=== PATIENT | female | born 1980 ===

== ENCOUNTER 2017-07-16 19:22 | Emergency (ER) | payer MEDICAID ==
[2017-07-16 19:54] VITALS: RESP 18
[2017-07-16 20:24] LABS: HCG,QUALITATIVE URINE NEGATIVE (NEGATIVE)
[2017-07-16 20:29] LABS: SQUAMOUS EPITHIAL 18 /hpf (0-5); URINE BACTERIA RARE (<OCC); URINE BILIRUBIN NEGATIVE (NEGATIVE); URINE BLOOD 2+ (NEGATIVE); URINE CLARITY Hazy (Clear); URINE COLOR Yellow (YELLOW); URINE GLUCOSE (UA) NORMAL (Normal); URINE LEUKOCYTE ESTERASE 3+ Leu/uL (Negative); URINE PROTEIN NEGATIVE (NEGATIVE); WBC CLUMPS MOD /hpf
[2017-07-16 20:39] LABS: BASO % 0.2 % (0.0-2.0); EOS % 0.2 % (0.0-4.0); HEMOGLOBIN 10.5 g/dL (11.0-16.0); LYMPH # 1.5 K/uL (1.0-4.3); LYMPH % 10.9 % (20.0-40.0); MEAN CELL VOLUME 83.8 fL (81.0-99.0); MEAN CORPUSCULAR HEMOGLOBIN 28.4 pg (27.0-31.0); MEAN CORPUSCULAR HGB CONC 33.9 g/dL (33.0-37.0); MEAN PLATELET VOLUME 7.6 fL (7.2-11.7); MONO # 1.1 K/uL (0.0-0.8); MONO % 7.6 % (0.0-10.0); NEUT # 11.2 K/uL (1.8-7.0); NEUT % 81.1 % (50.0-75.0); RBC 3.71 Mil/uL (3.80-5.20); RED CELL DISTRIBUTION WIDTH 13.1 % (11.5-14.5); WHITE BLOOD COUNT 13.8 K/uL (4.8-10.8)
[2017-07-16 20:50] LABS: ALB/GLOB RATIO 0.9 (1.0-2.1); ALBUMIN 3.6 g/dL (3.5-5.0); ALT/SGPT 20 U/L (9-52); AST/SGOT 14 U/L (14-36); BLOOD UREA NITROGEN 9 mg/dL (7-17); CALCIUM 8.3 mg/dl (8.6-10.4); GFR AFRICAN-AMERICAN > 60; GFR NON-AFRICAN AMERICAN > 60; LIPASE 167 U/L (23-300)
[2017-07-16] MEDS ORDERED: Ciprofloxacin 400mg/200ml D5W 400 MG/200 ML BAG IV STA (20:51)
[2017-07-16] MEDS ORDERED: Ciprofloxacin 400mg/200ml D5W 400 MG/200 ML BAG IVPB ONE (21:03)
[2017-07-16] MEDS ORDERED: Sodium Chloride 0.9% 1,000 ML IV ONE (21:08)
[2017-07-16] MEDS ORDERED: Sodium Chloride 0.9% 1,000 ML ONE (21:12)
--- NOTE | 2017-07-16 21:16 | C.PDOC ---
History Of Present Illness 37 y/o female, [id number], presents to the ED complaining of vomiting for 3 weeks, associated with left lower quadrant pain radiating to left flank pain. (+) nausea and intermittent fever. Denies . Patient was evaluated for the same at [facility] 3 weeks ago without significant findings. Now states she wants a second opinion. Of note, patients PMHx is significant only for bipolar disorder. Time Seen by Provider: 07/16/17 20:08 Chief Complaint (Nursing): GI Problem History Per: Patient History/Exam Limitations: no limitations Onset/Duration Of Symptoms: Days (x 3 weeks) Current Symptoms Are (Timing): Still Present Past Medical History Reviewed: Historical Data, Nursing Documentation, Vital Signs Vital Signs: Last Vital Signs Temp 99.5 F 07/16/17 19:50 Pulse 118 H 07/16/17 19:50 Resp 18 07/16/17 19:50 BP 113/76 07/16/17 19:50 Pulse Ox 99 07/16/17 21:23 - Medical History PMH: Bipolar Disorder Denies: Chronic Kidney Disease Surgical History: No Surg Hx Family History: States: No Known Family Hx - Social History Hx Tobacco Use: No Hx Alcohol Use: Yes Hx Substance Use: No - Immunization History Hx Tetanus Toxoid Vaccination: No Hx Influenza Vaccination: No Review Of Systems Except As Marked, All Systems Reviewed And Found Negative. Constitutional: Negative for: Fever, Chills Gastrointestinal: Positive for: Vomiting, Abdominal Pain. Negative for: Nausea , Diarrhea, Constipation Genitourinary: Negative for: Dysuria, Frequency Physical Exam - Physical Exam Appears: Non-toxic, No Acute Distress, Other (Blue-tinted hair) Skin: Normal Color, Warm, Dry Head: Atraumatic, Normacephalic Eye(s): bilateral: Normal Inspection, PERRL, EOMI Nose: Normal Oral Mucosa: Moist Neck: Normal ROM Chest: Symmetrical Cardiovascular: Rhythm Regular, No Murmur Respiratory: Normal Breath Sounds, No Accessory Muscle Use Gastrointestinal/Abdominal: Bowel Sounds (active), Soft, No Tenderness, No Guarding, No Rebound Extremity: Bilateral: Atraumatic, Normal Color And Temperature, Normal ROM Neurological/Psych: Oriented x3, Normal Speech Gait: Steady Additional Physical Exam Comments: ROSANNA Lowe chaperoned exam ED Course And Treatment - Laboratory Results Result Diagrams: 07/16/17 20:34 07/16/17 20:34 Lab Interpretation: Abnormal (UA 387 WBC's) Urine POC: Negative O2 Sat by Pulse Oximetry: 99 (RA) Pulse Ox Interpretation: Normal - Radiology CXR: Interpreted by Me CXR Interpretation: Yes: No Acute Disease - Other Rad abd x 2 X-Ray: Interpreted by Me (+ increased stool/gas) Progress Note: toradol, IVF, Cipro IV Reevaluation Time: 21:22 Reassessment Condition: Improved Medical Decision Making Medical Decision Making: Time: 20:11 Initial Plan: * Labs * Pepcid 20 mg IV * Zofran 4 mg IV * IV fluids * X-ray obstructive series X-ray and lab results reviewed. Urine is indicative of UTI. 20:51 Pt given IV Cipro in the ED 2114: prob L pyelonephritis cipro empirically x 10 days. Disposition Doctor Will See Patient In The: Office Counseled Patient/Family Regarding: Studies Performed, Diagnosis - Disposition Disposition: HOME/ ROUTINE Disposition Time: 21:23 Condition: GOOD Prescriptions: Ciprofloxacin [Cipro] 1 tab PO BID #19 tab Forms: [employer] (Greek) - Clinical Impression Clinical Impression: UTI (urinary tract infection), Fever - Scribe Statement The provider has reviewed the documentation as recorded by the Scribe (Fifi Yi) Provider Attestation: All medical record entries made by the Scribe were at my direction and personally dictated by me. I have reviewed the chart and agree that the record accurately reflects my personal performance of the history, physical exam, medical decision making, and the department course for this patient. I have also personally directed, reviewed, and agree with the discharge instructions and disposition.
[2017-07-16 22:45] VITALS: BP 114/74; PULSE 86; TEMP 98.6; O2SAT 100
--- NOTE | 2017-07-17 08:23 | RAD ---
PROCEDURE: Radiographs of the chest and abdomen (obstructive series) HISTORY: abd pain COMPARISON: No prior. TECHNIQUE: AP radiograph of the chest, with upright and supine radiographs of the abdomen. FINDINGS: CHEST: Lungs: Clear. Cardiovascular: Normal size heart. No pulmonary vascular congestion. Pleura: No pleural fluid. No pneumothorax. Other findings: None. ABDOMEN AND PELVIS: Bowel: Unremarkable bowel gas pattern. No evidence of mechanical obstruction. Free air: None. Bones: Unremarkable. Other findings: 1.6 x 2.0 cm left staghorn calculus. IMPRESSION: No focal consolidation or pleural effusion. 1.6 x 2.0 cm left staghorn calculus. Unremarkable bowel gas pattern.
== END 2017-07-16 22:36 | disposition home or self-care (01) ==
LOC: C.ER 19:22
DX: N39.0 Urinary tract infection, site not specified (principal); R50.9 Fever, unspecified
CPT/HCPCS: 74022; 80053; 81001; 83690; 84703; 85025; 96365; 96375; 99285; J0744; J2405; J7040

== ENCOUNTER 2017-12-06 17:15 | Emergency (ER) | payer MEDICAID ==
[2017-12-06 17:28] VITALS: BP 150/86; PULSE 82; TEMP 98; O2SAT 100
--- NOTE | 2017-12-06 19:22 | C.PDOC ---
History Of Present Illness 37-year-old female presents to the ED for evaluation after she sustained an injury to her right foot earlier today. Patient states she was in the store when a prize wheel fell onto her right foot. Patient also reports a rash to her breast region; Patient states she recently underwent a mammomgram and breast sonogram. Patient denies any other injuries or extremity numbness/weakness. Time Seen by Provider: 12/06/17 17:37 Chief Complaint (Nursing): Abnormal Skin Integrity History Per: Patient History/Exam Limitations: no limitations Onset/Duration Of Symptoms: Hrs Current Symptoms Are (Timing): Still Present Additional History Per: Patient Past Medical History Reviewed: Historical Data, Nursing Documentation, Vital Signs Vital Signs: Last Vital Signs Temp 98.0 F 12/06/17 17:23 Pulse 82 12/06/17 17:23 Resp 20 12/06/17 19:31 BP 150/86 12/06/17 17:23 Pulse Ox 100 12/07/17 00:05 - Medical History PMH: Bipolar Disorder Denies: Chronic Kidney Disease Surgical History: No Surg Hx Family History: States: Unknown Family Hx - Social History Hx Tobacco Use: No Hx Alcohol Use: Yes Hx Substance Use: No - Immunization History Hx Tetanus Toxoid Vaccination: No Hx Influenza Vaccination: No Hx Pneumococcal Vaccination: No Review Of Systems Musculoskeletal: Positive for: Foot Pain (right ) Skin: Positive for: Rash (breasts) Neurological: Negative for: Weakness, Numbness Physical Exam - Physical Exam Appears: Non-toxic, No Acute Distress Skin: Normal Color, Warm, Dry, Other ( petechiae and contusion to breasts) Head: Atraumatic, Normacephalic Eye(s): bilateral: Normal Inspection Oral Mucosa: Moist Neck: Supple Chest: Symmetrical, No Deformity, No Tenderness Cardiovascular: Rhythm Regular, No Murmur Respiratory: Normal Breath Sounds, No Rales, No Rhonchi, No Wheezing Extremity: Normal ROM, Capillary Refill (less than 2 seconds ), Other (slight swelling, erythema and tenderness to base of all toes of right foot ) Pulses: Left Dorsalis Pedis: Normal, Right Dorsalis Pedis: Normal Neurological/Psych: Oriented x3, Normal Speech, Normal Cognition ED Course And Treatment O2 Sat by Pulse Oximetry: 100 (on RA) Pulse Ox Interpretation: Normal - Other Rad FOOT XRAY X-Ray: Viewed By Me, Read By Radiologist Interpretation: Accession No. : [id number]. Patient Name / ID : HERMES WILSON / [id number]. Exam Date : 12/06/2017 18:16:59 ( Approved ). Study Comment : Sex / Age : F / [id number]. Creator : Naheed Vickers. Dictator : Jaden Rodriguez MD. Dinker : Customer Sales Advisor : Jaden Rodriguez MD. Approver2 : Report Date : 12/06/2017 18:30:36. My Comment : . Right foot three views. History: Injury. Comparison: None available. Findings: Dense sclerosis noted within the medullary cavity of the 5th metatarsal bone, nonspecific. Clinical correlation. Mild hallux valgus deformity. No evidence for acute displaced fracture or dislocation. Impression: Dense sclerosis noted within the medullary cavity of the 5th metatarsal bone, nonspecific. Clinical correlation. Negative acute. If pain persists, consider MRI. Progress Note: Right foot XR ordered and reviewed. Results are unremarkable. On re-exam, patient is resting comfortably, showing no signs of distress and is stablel for discharge. Patient provided with orthopedic shoe and crutches. Patient is advised to follow up with orthopedic care within 1-2 days for further evaluation. Disposition - Disposition Referrals: Edmar Bonilla DPM [Medical Doctor] - Elias Edge DPM [Staff Provider] - Disposition: HOME/ ROUTINE Disposition Time: 19:19 Condition: STABLE Additional Instructions: Follow up with remote broadcast engineer within1-2 days. Return to ED if feel worse. Prescriptions: Ibuprofen [Motrin Tab] 600 mg PO Q8 #30 tab Instructions: Contusion (DC) Forms: [employer] (Malian), Work Excuse - Clinical Impression Clinical Impression: Foot contusion, Traumatic petechiae - PA / RESIDENTIAL TREATMENT STAFF / Resident Statement MD/DO has reviewed & agrees with the documentation as recorded. - Scribe Statement The provider has reviewed the documentation as recorded by the Scribe (Emili Engel) All medical record entries made by the Scribe were at my direction and personally dictated by me. I have reviewed the chart and agree that the record accurately reflects my personal performance of the history, physical exam, medical decision making, and the department course for this patient. I have also personally directed, reviewed, and agree with the discharge instructions and disposition.
[2017-12-06 19:32] VITALS: RESP 20
--- NOTE | 2017-12-07 09:58 | RAD ---
Right foot three views History: Injury. Comparison: None available. Findings: Dense sclerosis noted within the medullary cavity of the 5th metatarsal bone, nonspecific. Clinical correlation. Mild hallux valgus deformity. No evidence for acute displaced fracture or dislocation. Impression: Dense sclerosis noted within the medullary cavity of the 5th metatarsal bone, nonspecific. Clinical correlation. Negative acute. If pain persists, consider MRI.
== END 2017-12-06 19:31 | disposition home or self-care (01) ==
LOC: C.ER 17:15
DX: S90.31XA Contusion of right foot, initial encounter (principal); W20.8XXA Other cause of strike by thrown, projected or falling object, initial encounter; Y92.512 Supermarket, store or market as the place of occurrence of the external cause; R23.3 Spontaneous ecchymoses

== ENCOUNTER 2017-12-25 16:47 | Emergency (ER) | payer MEDICAID ==
[2017-12-25 17:01] VITALS: BMI 25.5
[2017-12-25 17:14] VITALS: BP 133/89; PULSE 104; RESP 18; TEMP 98.6; O2SAT 96
[2017-12-25] MEDS ORDERED: Tmp-Smz 800 mg-160 mg DS Tab PO STA (17:21)
--- NOTE | 2017-12-25 17:23 | C.PDOC ---
History Of Present Illness 37 y/o female presents to the ER complaining of pimple in left buttock which has been present for the past 3 weeks. Patient states that she has pain. Denies having discharge, fever, and chills. Time Seen by Provider: 12/25/17 17:09 Chief Complaint (Nursing): Abnormal Skin Integrity History Per: Patient History/Exam Limitations: no limitations Onset/Duration Of Symptoms: Days Current Symptoms Are (Timing): Still Present Severity: Moderate Past Medical History Reviewed: Historical Data, Nursing Documentation, Vital Signs Vital Signs: Last Vital Signs Temp 98.6 F 12/25/17 17:01 Pulse 104 H 12/25/17 17:01 Resp 18 12/25/17 17:01 BP 133/89 12/25/17 17:01 Pulse Ox 96 12/25/17 17:01 - Medical History PMH: Bipolar Disorder, Kidney Stones (CURRENTLY PER PATIENT), Chronic Kidney Disease Surgical History: No Surg Hx Family History: States: No Known Family Hx - Social History Hx Tobacco Use: No Hx Alcohol Use: Yes Hx Substance Use: No - Immunization History Hx Tetanus Toxoid Vaccination: No Hx Influenza Vaccination: No Hx Pneumococcal Vaccination: No Review Of Systems Except As Marked, All Systems Reviewed And Found Negative. Constitutional: Negative for: Fever, Chills Skin: Positive for: Other (pimple to left buttock) Physical Exam - Physical Exam Appears: Non-toxic, No Acute Distress Skin: Normal Color, Warm, Dry, Other (8x8 cm round area of erythema, induration, no fluctuance, consistent with cellulitis) Head: Atraumatic, Normacephalic Eye(s): bilateral: Normal Inspection Nose: Normal Oral Mucosa: Moist Neck: Supple Chest: Symmetrical Extremity: Normal ROM, Tenderness (left buttock), Swelling (left buttock), Other (chaperoned by nurse) Neurological/Psych: Oriented x3, Normal Speech ED Course And Treatment O2 Sat by Pulse Oximetry: 96 (RA) Pulse Ox Interpretation: Normal Medical Decision Making Medical Decision Making: skin infection L buttock cellulitis no fluctuance to drain Disposition Doctor Will See Patient In The: Office Counseled Patient/Family Regarding: Studies Performed, Diagnosis - Disposition [facility]errals[facility] [Outside] [facility] [Outside] [email or web address] [Outside] Disposition: HOME/ ROUTINE Disposition Time: 17:22 Condition: GOOD Additional Instructions: Bactrim DS (antibiotic) twice daily for 5 days Motrin 400-600 mg every 6 hours as needed for pain. Warm compresses to the lesion DO NOT SQUEEZE- MAKES THE INFECTION DEEPER Follow-up in our outpatient [facility] as needed. Prescriptions: Sulfamethoxazole/Trimethoprim [Bactrim DS 800 mg-160 mg] 1 tab PO BID #9 tab Instructions: Cellulitis (Skin Infection), Adult (DC) Forms: [employer] (Serbian) - Clinical Impression Clinical Impression: Skin lesion - Scribe Statement The provider has reviewed the documentation as recorded by the Tejalibe Jaime Agrawal Provider Attestation: All medical record entries made by the Scribe were at my direction and personally dictated by me. I have reviewed the chart and agree that the record accurately reflects my personal performance of the history, physical exam, medical decision making, and the department course for this patient. I have also personally directed, reviewed, and agree with the discharge instructions and disposition.
[2017-12-25] MEDS ORDERED: Tmp-Smz 800 mg-160 mg DS Tab ONE (17:35)
== END 2017-12-25 17:37 | disposition home or self-care (01) ==
LOC: C.ER 16:47
DX: L98.9 Disorder of the skin and subcutaneous tissue, unspecified (principal)

== ENCOUNTER 2018-02-26 11:57 | Inpatient (IN) | payer MEDICAID ==
[2018-02-26 11:58] VITALS: BMI 25.5
[2018-02-26] MEDS ORDERED: Sodium Chloride 0.9% 1,000 ML IV ONE (13:30)
[2018-02-26 13:35] LABS: SQUAMOUS EPITHIAL 21 /hpf (0-5); URINE BILIRUBIN NEGATIVE (NEGATIVE); URINE BLOOD 3+ (NEGATIVE); URINE CLARITY Hazy (Clear); URINE COLOR Amber (YELLOW); URINE GLUCOSE (UA) NORMAL (Normal); URINE LEUKOCYTE ESTERASE NEG Leu/uL (Negative); URINE PROTEIN 2+ mg/dL (NEGATIVE); URINE UROBILINOGEN NORMAL mg/dL (0.2-1.0)
[2018-02-26] MEDS ORDERED: Sodium Chloride 0.9% 1,000 ML ONE (13:41)
[2018-02-26 13:56] LABS: BASO # 0.1 K/uL (0.0-0.2); BASO % 0.9 % (0.0-2.0); EOS # 0.1 K/uL (0.0-0.7); EOS % 0.6 % (0.0-4.0); HEMOGLOBIN 12.3 g/dL (11.0-16.0); LYMPH # 2.5 K/uL (1.0-4.3); LYMPH % 29.2 % (20.0-40.0); MEAN CELL VOLUME 85.3 fL (81.0-99.0); MEAN CORPUSCULAR HEMOGLOBIN 29.3 pg (27.0-31.0); MEAN CORPUSCULAR HGB CONC 34.4 g/dL (33.0-37.0); MEAN PLATELET VOLUME 8.4 fL (7.2-11.7); MONO # 0.5 K/uL (0.0-0.8); MONO % 5.4 % (0.0-10.0); NEUT # 5.6 K/uL (1.8-7.0); NEUT % 63.9 % (50.0-75.0); RBC 4.2 Mil/uL (3.80-5.20); RED CELL DISTRIBUTION WIDTH 13.1 % (11.5-14.5); WHITE BLOOD COUNT 8.7 K/uL (4.8-10.8)
--- NOTE | 2018-02-26 14:02 | C.PDOC ---
History Of Present Illness 37 year old female with history of kidney stones presents to the ED complaining of left sided back pain associated with vomiting and hematuria that started today. Reports she was sent by Dr. Vivek Rivera because she has a 2.5cm kidney stone. LNMP last week. Denies any fever, chills, diarrhea, abdominal pain, chest pain, shortness of breath, weakness, numbness, or any other symptoms. Chief Complaint (Nursing): Back Pain History Per: Patient History/Exam Limitations: no limitations Onset/Duration Of Symptoms: Hrs Current Symptoms Are (Timing): Still Present Associated Symptoms: None Past Medical History Reviewed: Historical Data, Nursing Documentation, Vital Signs Vital Signs: Last Vital Signs Temp 98.2 F 02/26/18 12:24 Pulse 72 02/26/18 12:24 Resp 20 02/26/18 12:24 BP 126/81 02/26/18 12:24 Pulse Ox 99 02/26/18 12:24 - Medical History PMH: Bipolar Disorder, Kidney Stones (CURRENTLY PER PATIENT) Denies: Chronic Kidney Disease Other Surgeries: Hx of surgeries Family History: States: No Known Family Hx - Social History Hx Tobacco Use: No Hx Alcohol Use: Yes Hx Substance Use: No - Immunization History Hx Tetanus Toxoid Vaccination: No Hx Influenza Vaccination: No Hx Pneumococcal Vaccination: No Review Of Systems Constitutional: Negative for: Fever, Chills Cardiovascular: Negative for: Chest Pain Respiratory: Negative for: Shortness of Breath Gastrointestinal: Positive for: Vomiting. Negative for: Abdominal Pain, Diarrhea, Constipation Genitourinary: Positive for: Hematuria. Negative for: Dysuria Musculoskeletal: Positive for: Back Pain Physical Exam - Physical Exam Appears: Non-toxic, No Acute Distress, Other (comfortable, using her phone ) Skin: Warm, Dry Head: Normacephalic Eye(s): bilateral: Normal Inspection Nose: Normal Oral Mucosa: Moist Neck: Supple Chest: Symmetrical Cardiovascular: Rhythm Regular Respiratory: Normal Breath Sounds, No Rales, No Rhonchi, No Wheezing Gastrointestinal/Abdominal: Soft, No Tenderness, No Distention, No Guarding, No Rebound Back: CVA Tenderness (left) Extremity: Bilateral: Atraumatic, Normal Color And Temperature, Normal ROM Neurological/Psych: Oriented x3, Normal Speech Gait: Steady ED Course And Treatment - Laboratory Results Result Diagrams: 02/27/18 07:06 02/27/18 07:06 ECG: Interpreted By Me, Viewed By Me ECG Rhythm: Sinus Rhythm ECG Interpretation: No Acute Changes Interpretation Of ECG: Normal axis, normal intervals. No ST elevations. Rate From EC O2 Sat by Pulse Oximetry: 99 (RA) Pulse Ox Interpretation: Normal Medical Decision Making Medical Decision Making: Plan - CT abd/pel - Bloodwork - Toradol 15mg IVP - IV fluids Updates: 15:35 Patient ate a sandwich. Case discussed with . adv ised for patient to be admitted under the service of the hospitalist. Dr. Rivera will perform surgery tomorrow. 16:18 Case discussed with , hospitalist. Patient will be admitted under his service. Dr. Terry wants Dr. Angel for ID consult. Patient has been instructed about NPO after midnight mariya Rivera will take her for surgery in the morning. Disposition Counseled Patient/Family Regarding: Studies Performed, Diagnosis - Disposition Disposition: HOSPITALIZED Disposition Time: 16:18 Condition: IMPROVED - Clinical Impression Clinical Impression: Kidney stone, Renal colic - Scribe Statement The provider has reviewed the documentation as recorded by the Scribe Stefanie Rodriguez All medical record entries made by the Tejalibvivek were at my direction and personally dictated by me. I have reviewed the chart and agree that the record accurately reflects my personal performance of the history, physical exam, medical decision making, and the department course for this patient. I have also personally directed, reviewed, and agree with the discharge instructions and disposition.
[2018-02-26 14:18] LABS: ALB/GLOB RATIO 1.3 (1.0-2.1); ALBUMIN 4.4 g/dL (3.5-5.0); ALT/SGPT 24 U/L (9-52); AST/SGOT 22 U/L (14-36); BLOOD UREA NITROGEN 18 mg/dL (7-17); CALCIUM 9.2 mg/dl (8.6-10.4); GFR NON-AFRICAN AMERICAN > 60; LIPASE 191 U/L (23-300)
--- NOTE | 2018-02-26 15:14 | CT ---
Date of service: 02/26/2018 PROCEDURE: CT Abdomen and Pelvis without intravenous contrast HISTORY: abd pain COMPARISON: Abdomen obstructive radiographs 07/16/2017. TECHNIQUE: Helical CT of the abdomen and pelvis was performed without oral or intravenous contrast as per referring physician request. Coronal and sagittal reformats were generated. Contrast dose: None Radiation dose: Total exam DLP = 421.25 mGy-cm. This CT exam was performed using one or more of the following dose reduction techniques: Automated exposure control, adjustment of the mA and/or kV according to patient size, and/or use of iterative reconstruction technique. FINDINGS: LOWER THORAX: Tiny hiatal hernia identified with lung bases otherwise unremarkable as imaged. LIVER: There are numerable small lucencies scattered throughout the liver poorly characterized in this unenhanced CT exam. The largest measures 2.1 x 1.4 cm and is suggestive of a cyst given 2.6 Hounsfield unit management. Contrast CT is recommended for more definitive evaluation of the liver less there is a contraindication. Gross intrahepatic biliary duct dilatation is not felt to be present but again, evaluation limited given lack of IV contrast. GALLBLADDER AND BILE DUCTS: Unremarkable. PANCREAS: Unremarkable. No gross lesion or ductal dilatation. SPLEEN: Unremarkable. ADRENALS: Unremarkable. No mass. KIDNEYS AND URETERS: Renal parenchyma is inhomogeneous diffusely but without definite perinephric reaction or fluid collection evident. No right hydronephrosis. Pattern may be reflection of polycystic kidney disease. Clinically correlate further. This may explain the heterogeneous density hepatic appearance described above. There is a 1.1 x 0.9 cm calculus at the left renal pelvis without additional radiodense urolithiasis identified in the left kidney. A punctate intrarenal calculus is questioned versus parenchymal calculi sub occasion punctate in size at the lower pole right kidney. No right-sided obstructive uropathy. VASCULATURE: Unremarkable. No aortic aneurysm. No aortic atherosclerotic calcification or mural plaque present. BOWEL: Borderline sigmoid diverticular changes without acute inflammation associated. No bowel obstruction. No local pericolic or perienteric reactive changes. APPENDIX: Unremarkable. Normal appendix. PERITONEUM: Unremarkable. No free fluid. No free air. LYMPH NODES: Unremarkable. No enlarged lymph nodes. BLADDER: Unremarkable. REPRODUCTIVE: Somewhat lobular contour the uterus may indicate underlying fibroids. BONES: No acute fracture. OTHER FINDINGS: None. IMPRESSION: 1. Inhomogeneous density seen throughout the bilateral kidneys which are normal in overall size and may reflect limited adult polycystic kidney disease. Follow up ultrasonography or contrast core sectional imaging can be utilized for added renal characterization. No obstructive uropathy. A nonobstructing 1.1 cm calculus is identified at the left renal pelvis with a punctate calculus questioned at a lower pole right renal calyx. No perinephric reaction bilaterally. 2. Heterogeneous density throughout the liver is due at least in part to low multiple likely small hepatic cysts with a dominant cyst measuring 2.1 x 1.4 cm at the right lobe liver superiorly. Contrast CT can better evaluate hepatic parenchyma or MRI. 3. Likely fibroid uterus.
[2018-02-26] MEDS ORDERED: Sodium Chloride 0.9% 1,000 ML IV SCH ×2 (16:45→16:51)
--- NOTE | 2018-02-26 16:51 | CP.PCM.HP ---
<Adriano Kincaid - Last Filed: 02/26/18 16:42> History of Present Illness - History of Present Illness History of Present Illness: PGY-1 History and Physical for Dr[address] Terry's service CC: left back pain Ms. Huitron is 37 year old female with PMH of kidney stones who presents with sharp, stabbing left flank pain that radiates to her left shoulder. She had this pain for 3 months before but the pain got worse today while cleaning her house with multiple episodes of vomiting and hematuria. Patient has history of multiple kidney stones in both kidneys in past. She was sent to the hospital by Dr. Rivera for operation on 02/27/18 for kidney stone removal. Patient's pain is controlled with IV toradol. Patient denies any fever, headache, chest pain, shortness of breath, nausea, abdominal pain or dysuria. Patient admits to left flank pain, hematuria, and one episode of vomiting. PMH: kidney stones PSH: ureteroscopy Meds: none ALL: Morphine - rash Social hx: 2 cigarettes per day for past 3 years, drinks alcohol twice a week for 2 weeks, no illicit drugs Family hx: non-contributory PMD: unknown Code: Full Code Present on Admission - Present on Admission Any Indicators Present on Admission: No Review of Systems - Review of Systems Review of Systems: 12 point ROS obtained and noted as in HPI Past Patient History - Infectious Disease Hx of Infectious Diseases: None - Past Social History Smoking Status: Light Smoker < 10 Cigarettes Daily - CARDIAC Hx Heart Murmur: Yes - PULMONARY Hx Respiratory Disorders: No - NEUROLOGICAL Hx Neurological Disorder: No - HEENT Hx HEENT Problems: No - RENAL Hx Chronic Kidney Disease: No Hx Kidney Stones: Yes (CURRENTLY PER PATIENT) - ENDOCRINE/METABOLIC Hx Endocrine Disorders: No - HEMATOLOGICAL/ONCOLOGICAL Hx Blood Disorders: No - INTEGUMENTARY Hx Dermatological Problems: No - MUSCULOSKELETAL/RHEUMATOLOGICAL Hx Musculoskeletal Disorders: No - GASTROINTESTINAL Hx Gastrointestinal Disorders: No - GENITOURINARY/GYNECOLOGICAL Hx Genitourinary Disorders: No Other/Comment: Kidney stones - PSYCHIATRIC Hx Bipolar Disorder: Yes Hx Substance Use: No - SURGICAL HISTORY Hx Surgeries: Yes Other/Comment: Lithotrypsy - ANESTHESIA Hx Anesthesia: Yes Hx Anesthesia Reactions: No Meds Allergies/Adverse Reactions: Allergies Allergy/AdvReac Type Severity Reaction Status Date / Time morphine Allergy RASH Verified 02/26/18 12:27 Physical Exam - Constitutional Appears: Non-toxic, No Acute Distress - Head Exam Head Exam: NORMAL INSPECTION, NORMOCEPHALIC - Eye Exam Eye Exam: EOMI, Normal appearance. absent: Nystagmus, Scleral icterus - ENT Exam ENT Exam: Mucous Membranes Moist - Respiratory Exam Respiratory Exam: Clear to Auscultation Bilateral, NORMAL BREATHING PATTERN. absent: Rales, Rhonchi, Wheezes - Cardiovascular Exam Cardiovascular Exam: REGULAR RHYTHM, +S1, +S2. absent: Tachycardia - GI/Abdominal Exam GI & Abdominal Exam: Normal Bowel Sounds, Soft. absent: Diminished Bowel Sounds, Distended, Firm, Guarding, Tenderness - Extremities Exam Extremities exam: Positive for: normal inspection. Negative for: calf tenderness, pedal edema - Back Exam Back exam: CVA tenderness (L), NORMAL INSPECTION. absent: CVA tenderness (R) - Neurological Exam Neurological exam: Alert, CN II-XII Intact, Oriented x3 - Psychiatric Exam Psychiatric exam: Normal Affect, Normal Mood - Skin Skin Exam: Intact, Normal Color Results - Vital Signs Recent Vital Signs: Last Vital Signs Temp 98.2 F 02/26/18 12:24 Pulse 72 02/26/18 12:24 Resp 20 02/26/18 12:24 BP 126/81 02/26/18 12:24 Pulse Ox 99 02/26/18 16:25 - Labs Result Diagrams: 02/26/18 13:49 02/26/18 13:49 Labs: Laboratory Results - last 24 hr 02/26/18 02/26/18 02/26/18 13:24 13:49 13:49 WBC 8.7 RBC 4.20 Hgb 12.3 Hct 35.8 MCV 85.3 MCH 29.3 MCHC 34.4 RDW 13.1 Plt Count 337 D MPV 8.4 Neut % (Auto) 63.9 Lymph % (Auto) 29.2 [place] % (Auto) 5.4 Eos % (Auto) 0.6 Baso % (Auto) 0.9 Neut # (Auto) 5.6 Lymph # (Auto) 2.5 [place] # (Auto) 0.5 Eos # (Auto) 0.1 Baso # (Auto) 0.1 Sodium 139 Potassium 4.1 Chloride 103 Carbon Dioxide 26 Anion Gap 14 BUN 18 H Creatinine 0.6 L Est GFR ( Amer) > 60 Est GFR (Non-Af Amer) > 60 Random Glucose 92 Calcium 9.2 Total Bilirubin 0.6 AST 22 ALT 24 Alkaline Phosphatase 79 Total Protein 7.7 Albumin 4.4 Globulin 3.3 Albumin/Globulin Ratio 1.3 Lipase 191 Urine Color Flower Urine Clarity Hazy Urine pH 6.0 Ur Specific [place] 1.020 Urine Protein 2+ H Urine Glucose (UA) Normal Urine Ketones Negative Urine Blood 3+ H Urine Nitrate Negative Urine Bilirubin Negative Urine Urobilinogen Normal Ur Leukocyte Esterase Neg Urine WBC (Auto) 2 Urine RBC (Auto) 523 H Ur Squamous Epith Cells 21 H Assessment & Plan - Assessment and Plan (Free Text) Assessment: Patient is a 37 yo female with past medical history of recurrent kidney stones presents to emergency department s/p office meeting with Dr. Rivera who recommended patient come to hospital for stent placement. Plan: Left Kidney Stone CT Abdomen/Pelvis 02/26/18: nonobstructing 1.1 cm calculus is identified at the left renal pelvis with a punctate calculus questioned at a lower pole right renal calyx. Likely fibroid uterus Urology Consulted: Dr. Rivera- recommends stent placement in AM U/A: 2+ blood; multiple RBCs NS @ 40mls/hr IV toradol 30 q6 prn EKG pending; Cxray pending for preop clearance NPO in AM PPx: DVT: no need as patient is ambulatory GI: no indication for ppx Adriano Kincaid PGY-1 Medical Management discussed with Dr. Terry <Ty Terry - Last Filed: 02/26/18 18:07> Results - Vital Signs Recent Vital Signs: Last Vital Signs Temp 98.6 F 02/26/18 16:56 Pulse 80 02/26/18 16:56 Resp 20 02/26/18 16:56 BP 125/76 02/26/18 16:56 Pulse Ox 100 02/26/18 16:56 - Labs Result Diagrams: 02/26/18 13:49 02/26/18 13:49 Labs: Laboratory Results - last 24 hr 02/26/18 02/26/18 02/26/18 13:24 13:49 13:49 WBC 8.7 RBC 4.20 Hgb 12.3 Hct 35.8 MCV 85.3 MCH 29.3 MCHC 34.4 RDW 13.1 Plt Count 337 D MPV 8.4 Neut % (Auto) 63.9 Lymph % (Auto) 29.2 [place] % (Auto) 5.4 Eos % (Auto) 0.6 Baso % (Auto) 0.9 Neut # (Auto) 5.6 Lymph # (Auto) 2.5 [place] # (Auto) 0.5 Eos # (Auto) 0.1 Baso # (Auto) 0.1 Sodium 139 Potassium 4.1 Chloride 103 Carbon Dioxide 26 Anion Gap 14 BUN 18 H Creatinine 0.6 L Est GFR ( Amer) > 60 Est GFR (Non-Af Amer) > 60 Random Glucose 92 Calcium 9.2 Total Bilirubin 0.6 AST 22 ALT 24 Alkaline Phosphatase 79 Total Protein 7.7 Albumin 4.4 Globulin 3.3 Albumin/Globulin Ratio 1.3 Lipase 191 Urine Color Flower Urine Clarity Hazy Urine pH 6.0 Ur Specific [place] 1.020 Urine Protein 2+ H Urine Glucose (UA) Normal Urine Ketones Negative Urine Blood 3+ H Urine Nitrate Negative Urine Bilirubin Negative Urine Urobilinogen Normal Ur Leukocyte Esterase Neg Urine WBC (Auto) 2 Urine RBC (Auto) 523 H Ur Squamous Epith Cells 21 H Attending/Attestation - Attestation I have personally seen and examined this patient.: Yes I have fully participated in the care of the patient.: Yes I have reviewed all pertinent clinical information: Yes Notes (Text): 02/26/18 18:03 Medical attending: Patient was seen and examined by me. Reviewed the above note by the resident and agree with the above The patient was not in any acute distress when I came and saw the patient in the ER. The patient explains she has a known history of kidney stones and on CT scan there is a large stone on the left side this time. Urology is already aware and there is plan for the patient to have stenting down tomorrow and then at some point lithotrypsy. Patient will need CXRAY and also EKG, PT, INR check. NPO after midnight Ty Terry
[2018-02-26 20:23] LABS: INR 1.1; PROTHROMBIN TIME 12.5 SECONDS (9.7-12.2)
--- NOTE | 2018-02-26 22:56 | PCM.URO ---
Urology Progress Note - Objective Lab Studies: Reviewed (cysto tomorrow) Lab Results Last 24 Hours: Laboratory Results - last 24 hr 02/26/18 02/26/18 02/26/18 13:24 13:49 13:49 WBC 8.7 RBC 4.20 Hgb 12.3 Hct 35.8 MCV 85.3 MCH 29.3 MCHC 34.4 RDW 13.1 Plt Count 337 D MPV 8.4 Neut % (Auto) 63.9 Lymph % (Auto) 29.2 [place] % (Auto) 5.4 Eos % (Auto) 0.6 Baso % (Auto) 0.9 Neut # (Auto) 5.6 Lymph # (Auto) 2.5 [place] # (Auto) 0.5 Eos # (Auto) 0.1 Baso # (Auto) 0.1 PT INR APTT Sodium 139 Potassium 4.1 Chloride 103 Carbon Dioxide 26 Anion Gap 14 BUN 18 H Creatinine 0.6 L Est GFR ( Amer) > 60 Est GFR (Non-Af Amer) > 60 Random Glucose 92 Calcium 9.2 Total Bilirubin 0.6 AST 22 ALT 24 Alkaline Phosphatase 79 Total Protein 7.7 Albumin 4.4 Globulin 3.3 Albumin/Globulin Ratio 1.3 Lipase 191 Urine Color Flower Urine Clarity Hazy Urine pH 6.0 Ur Specific [place] 1.020 Urine Protein 2+ H Urine Glucose (UA) Normal Urine Ketones Negative Urine Blood 3+ H Urine Nitrate Negative Urine Bilirubin Negative Urine Urobilinogen Normal Ur Leukocyte Esterase Neg Urine WBC (Auto) 2 Urine RBC (Auto) 523 H Ur Squamous Epith Cells 21 H 02/26/18 20:09 WBC RBC Hgb Hct MCV MCH MCHC RDW Plt Count MPV Neut % (Auto) Lymph % (Auto) [place] % (Auto) Eos % (Auto) Baso % (Auto) Neut # (Auto) Lymph # (Auto) [place] # (Auto) Eos # (Auto) Baso # (Auto) PT 12.5 H INR 1.1 APTT 35 H Sodium Potassium Chloride Carbon Dioxide Anion Gap BUN Creatinine Est GFR ( Amer) Est GFR (Non-Af Amer) Random Glucose Calcium Total Bilirubin AST ALT Alkaline Phosphatase Total Protein Albumin Globulin Albumin/Globulin Ratio Lipase Urine Color Urine Clarity Urine pH Ur Specific [place] Urine Protein Urine Glucose (UA) Urine Ketones Urine Blood Urine Nitrate Urine Bilirubin Urine Urobilinogen Ur Leukocyte Esterase Urine WBC (Auto) Urine RBC (Auto) Ur Squamous Epith Cells Intake & Output: Intake & Output 02/26/18 02/26/18 02/27/18 06:59 18:59 06:59 Weight 148 lb Vital Signs: Vital Signs - 24 hr 02/26/18 02/26/18 02/26/18 12:24 16:56 17:30 Temperature 98.2 F 98.6 F 98.0 F Pulse Rate 72 80 76 Respiratory 20 20 20 Rate Blood Pressure 126/81 125/76 114/70 O2 Sat by Pulse 99 100 98 Oximetry 02/26/18 18:47 Temperature Pulse Rate Respiratory Rate Blood Pressure O2 Sat by Pulse 99 Oximetry
[2018-02-27 07:15] LABS: BASO # 0.1 K/uL (0.0-0.2); BASO % 0.7 % (0.0-2.0); EOS # 0.1 K/uL (0.0-0.7); EOS % 1.3 % (0.0-4.0); HEMOGLOBIN 11.6 g/dL (11.0-16.0); LYMPH # 2.4 K/uL (1.0-4.3); MEAN CELL VOLUME 86.1 fL (81.0-99.0); MEAN CORPUSCULAR HEMOGLOBIN 29.4 pg (27.0-31.0); MEAN CORPUSCULAR HGB CONC 34.1 g/dL (33.0-37.0); MEAN PLATELET VOLUME 8.6 fL (7.2-11.7); MONO # 0.4 K/uL (0.0-0.8); MONO % 5.7 % (0.0-10.0); NEUT # 4.5 K/uL (1.8-7.0); NEUT % 60.3 % (50.0-75.0); RBC 3.95 Mil/uL (3.80-5.20); RED CELL DISTRIBUTION WIDTH 13.1 % (11.5-14.5); WHITE BLOOD COUNT 7.4 K/uL (4.8-10.8)
[2018-02-27 07:43] LABS: ALB/GLOB RATIO 1.3 (1.0-2.1); ALBUMIN 3.7 g/dL (3.5-5.0); ALT/SGPT 20 U/L (9-52); AST/SGOT 19 U/L (14-36); BLOOD UREA NITROGEN 17 mg/dL (7-17); CALCIUM 8.4 mg/dl (8.6-10.4); GFR NON-AFRICAN AMERICAN > 60
[2018-02-27] MEDS ORDERED: cefTRIAXone 1 gm 1 GM/100 ML BAG IVPB ONE (09:31)
[2018-02-27] MEDS ORDERED: Lidocaine 2% Jelly (Uro-Jet) ONE (09:32)
[2018-02-27] MEDS ORDERED: HYDROmorphone 0.5 mg/0.5 ml ISec IVP PRN (09:53)
[2018-02-27] MEDS ORDERED: Midazolam 2 MG/2 ML VIAL ONE ×2 (10:04)
[2018-02-27] MEDS ORDERED: Propofol 10 mg/ml Inj (20 ML) ONE ×2 (10:07→10:15)
[2018-02-27] MEDS ORDERED: Oxycodone/Acetaminophen 5/325 mg Tab PO PRN (10:10)
[2018-02-27] MEDS: Iohexol 240 (50 ml) ONE ×2 (10:15→10:22)
[2018-02-27] MEDS ORDERED: Gentamicin 80 mg in 0.9% NS 80 MG/100 ML BAG IVPB SCH (11:00)
[2018-02-27] MEDS ORDERED: DiphenhydrAMINE 50 mg/ml Inj IVP ONE (11:45)
--- NOTE | 2018-02-27 13:10 | RAD ---
Chest x-ray single frontal view HISTORY: Preop clearance. Comparison: 02/26/2018 FINDINGS: Mild venous congestion. Right hilar prominence. Heart size within normal limits. Degenerative changes in the spine. Bibasilar breast and nipple shadows. Impression: No focal infiltrate or effusion.
[2018-02-27 15:17] VITALS: RESP 20
--- NOTE | 2018-02-27 16:34 | RAD ---
Date of service: 02/27/2018 PROCEDURE: Intraoperative Fluoroscopy. HISTORY: LT. RENAL CALCULI FINDINGS: Fluoroscopic assistance was provided. Fluoroscopy time = 11.5 sec. Radiation dose = 1.02 mGy. Please refer to the operative report from DHRUV Hinson, , MD DE[facility].
--- NOTE | 2018-02-27 17:14 | CP.PCM.DIS ---
<Neli Spencer - Last Filed: 02/27/18 19:45> Provider - Provider Date of Admission: 02/26/18 16:22 Attending physician: Ty Terry DO Consults: 02/26/18 16:39 Physician Consult Stat Comment: Consulting Provider: Reese Rivera Consulting Physician: Reese Rivera Reason for Consult: 2.5cm kidney ston, Left flank pain and hematuria Time Spent in preparation of Discharge (in minutes): 45 Diagnosis - Discharge Diagnosis (1) Nephrolithiasis Status: Acute Priority: High Hospital Course - Lab Results Lab Results: Most Recent Lab Values WBC 7.4 K/uL (4.8-10.8) 02/27/18 07:06 RBC 3.95 Mil/uL (3.80-5.20) 02/27/18 07:06 Hgb 11.6 g/dL (11.0-16.0) 02/27/18 07:06 Hct 34.1 % (34.0-47.0) 02/27/18 07:06 MCV 86.1 fL (81.0-99.0) 02/27/18 07:06 MCH 29.4 pg (27.0-31.0) 02/27/18 07:06 MCHC 34.1 g/dL (33.0-37.0) 02/27/18 07:06 RDW 13.1 % (11.5-14.5) 02/27/18 07:06 Plt Count 288 K/uL (130-400) 02/27/18 07:06 MPV 8.6 fL (7.2-11.7) 02/27/18 07:06 Neut % (Auto) 60.3 % (50.0-75.0) 02/27/18 07:06 Lymph % (Auto) 32.0 % (20.0-40.0) 02/27/18 07:06 [place] % (Auto) 5.7 % (0.0-10.0) 02/27/18 07:06 Eos % (Auto) 1.3 % (0.0-4.0) 02/27/18 07:06 Baso % (Auto) 0.7 % (0.0-2.0) 02/27/18 07:06 Neut # (Auto) 4.5 K/uL (1.8-7.0) 02/27/18 07:06 Lymph # (Auto) 2.4 K/uL (1.0-4.3) 02/27/18 07:06 [place] # (Auto) 0.4 K/uL (0.0-0.8) 02/27/18 07:06 Eos # (Auto) 0.1 K/uL (0.0-0.7) 02/27/18 07:06 Baso # (Auto) 0.1 K/uL (0.0-0.2) 02/27/18 07:06 PT 12.5 SECONDS (9.7-12.2) H 02/26/18 20:09 INR 1.1 02/26/18 20:09 APTT 35 SECONDS (21-34) H 02/26/18 20:09 Sodium 137 mmol/L (132-148) 02/27/18 07:06 Potassium 4.0 mmol/L (3.6-5.2) 02/27/18 07:06 Chloride 105 mmol/L (98-107) 02/27/18 07:06 Carbon Dioxide 26 mmol/L (22-30) 02/27/18 07:06 Anion Gap 10 (10-20) 02/27/18 07:06 BUN 17 mg/dL (7-17) 02/27/18 07:06 Creatinine 0.6 mg/dL (0.7-1.2) L 02/27/18 07:06 Est GFR ( Amer) > 60 02/27/18 07:06 Est GFR (Non-Af Amer) > 60 02/27/18 07:06 Random Glucose 80 mg/dL (65-105) 02/27/18 07:06 Calcium 8.4 mg/dl (8.6-10.4) L 02/27/18 07:06 Phosphorus 3.4 mg/dL (2.5-4.5) 02/27/18 07:06 Magnesium 1.9 mg/dL (1.6-2.3) 02/27/18 07:06 Total Bilirubin 0.5 mg/dL (0.2-1.3) 02/27/18 07:06 AST 19 U/L (14-36) 02/27/18 07:06 ALT 20 U/L (9-52) 02/27/18 07:06 Alkaline Phosphatase 70 U/L (38-126) 02/27/18 07:06 Total Protein 6.5 g/dL (6.3-8.3) 02/27/18 07:06 Albumin 3.7 g/dL (3.5-5.0) 02/27/18 07:06 Globulin 2.8 gm/dL (2.2-3.9) 02/27/18 07:06 Albumin/Globulin Ratio 1.3 (1.0-2.1) 02/27/18 07:06 Lipase 191 U/L (23-300) 02/26/18 13:49 Urine Color Flower (YELLOW) 02/26/18 13:24 Urine Clarity Hazy (Clear) 02/26/18 13:24 Urine pH 6.0 (5.0-8.0) 02/26/18 13:24 Ur Specific [place] 1.020 (1.003-1.030) 02/26/18 13:24 Urine Protein 2+ mg/dL (NEGATIVE) H 02/26/18 13:24 Urine Glucose (UA) Normal mg/dL (Normal) 02/26/18 13:24 Urine Ketones Negative mg/dL (NEGATIVE) 02/26/18 13:24 Urine Blood 3+ (NEGATIVE) H 02/26/18 13:24 Urine Nitrate Negative (NEGATIVE) 02/26/18 13:24 Urine Bilirubin Negative (NEGATIVE) 02/26/18 13:24 Urine Urobilinogen Normal mg/dL (0.2-1.0) 02/26/18 13:24 Ur Leukocyte Esterase Neg Neri/uL (Negative) 02/26/18 13:24 Urine WBC (Auto) 2 /hpf (0-5) 02/26/18 13:24 Urine RBC (Auto) 523 /hpf (0-3) H 02/26/18 13:24 Ur Squamous Epith Cells 21 /hpf (0-5) H 02/26/18 13:24 Urine HCG, Qual Negative (NEGATIVE) 02/27/18 07:25 - Hospital Course Hospital Course: Ms. Huitron is 37 year old female with PMH of kidney stones who presents with sharp, stabbing left flank pain that radiates to her left shoulder. She had this pain for 3 months before but the pain got worse today while cleaning her house with multiple episodes of vomiting and hematuria. Patient has history of multiple kidney stones in both kidneys in past. She was sent to the hospital by Dr. Rivera for operation on 02/27/18 for kidney stone removal. Patient's pain is controlled with IV toradol. Patient denies any fever, headache, chest pain, shortness of breath, nausea, abdominal pain or dysuria. Patient admits to left flank pain, hematuria, and one episode of vomiting. CT showed 1.1 cm nonobstructing stone in L renal pelvis. Patietn started on IVF and pain meds. Patient had ureteral stent placed by Dr. Rivera on 02/27 without complications. Upon discharge, patient's pain was well controlled with Percocet. She denied dysuria, endorsed hematuria. Did not yet pass tone. Will follow-up with Dr. Rivera tomorrow. Discharge Exam - Head Exam Head Exam: NORMAL INSPECTION, NORMOCEPHALIC - Eye Exam Eye Exam: EOMI, Normal appearance, PERRL - ENT Exam ENT Exam: Mucous Membranes Moist - Neck Exam Neck exam: Normal Inspection - Respiratory Exam Respiratory Exam: Clear to PA & Lateral, NORMAL BREATHING PATTERN, UNREMARKABLE - Cardiovascular Exam Cardiovascular Exam: REGULAR RHYTHM, +S1, +S2 - GI/Abdominal Exam GI & Abdominal Exam: Normal Bowel Sounds, Unremarkable Additional comments: mild suprapubic tenderness - Rectal Exam Rectal Exam: Deferred - Extremities Exam Extremities exam: normal inspection - Neurological Exam Neurological exam: Alert, CN II-XII Intact, Normal Gait, Oriented x3 - Psychiatric Exam Psychiatric exam: Normal Affect, Normal Mood - Skin Skin Exam: Dry, Intact, Normal Color, Warm Discharge Plan - Discharge Medications Prescriptions: Ciprofloxacin [Cipro] 500 mg PO Q12 3 Days #6 tab oxyCODONE/Acetaminophen [Percocet 5/325 mg Tab] 1 ea PO Q6 PRN 3 Days #18 tab PRN Reason: Pain, Severe (8-10) Tamsulosin [Flomax] 0.4 mg PO DAILY #30 cap - Follow Up Plan Condition: IMPROVED Disposition: HOME/ ROUTINE Patient education suggested?: Yes Instructions: Urinary Tract Infections in Adults, Ciprofloxacin (Systemic), Kidney Stones (DC), Oxycodone and Acetaminophen, Tamsulosin Additional Instructions: Please follow-up with Dr. Rivera once discharge. Dr. Rivera would like you to call his office to set-up outpatient care. You will be given a prescription for cipro 500 mg. Please take twice daily for 3 days. You will also be given Percocet for pain if needed, and Flomax. You may also take Tylenol over the counter for pain. If symptoms recur, return to the nearest emergency room. Referrals: Reese Rivera MD [Staff Provider] - <Ty Terry - Last Filed: 02/28/18 09:11> Provider - Provider Date of Admission: 02/26/18 16:22 Attending physician: Ty Terry DO Consults: 02/26/18 16:39 Physician Consult Stat Comment: Consulting Provider: Reese Rivera Consulting Physician: Reese Rivera Reason for Consult: 2.5cm kidney ston, Left flank pain and hematuria Hospital Course - Lab Results Lab Results: Most Recent Lab Values WBC 7.4 K/uL (4.8-10.8) 02/27/18 07:06 RBC 3.95 Mil/uL (3.80-5.20) 02/27/18 07:06 Hgb 11.6 g/dL (11.0-16.0) 02/27/18 07:06 Hct 34.1 % (34.0-47.0) 02/27/18 07:06 MCV 86.1 fL (81.0-99.0) 02/27/18 07:06 MCH 29.4 pg (27.0-31.0) 02/27/18 07:06 MCHC 34.1 g/dL (33.0-37.0) 02/27/18 07:06 RDW 13.1 % (11.5-14.5) 02/27/18 07:06 Plt Count 288 K/uL (130-400) 02/27/18 07:06 MPV 8.6 fL (7.2-11.7) 02/27/18 07:06 Neut % (Auto) 60.3 % (50.0-75.0) 02/27/18 07:06 Lymph % (Auto) 32.0 % (20.0-40.0) 02/27/18 07:06 [place] % (Auto) 5.7 % (0.0-10.0) 02/27/18 07:06 Eos % (Auto) 1.3 % (0.0-4.0) 02/27/18 07:06 Baso % (Auto) 0.7 % (0.0-2.0) 02/27/18 07:06 Neut # (Auto) 4.5 K/uL (1.8-7.0) 02/27/18 07:06 Lymph # (Auto) 2.4 K/uL (1.0-4.3) 02/27/18 07:06 [place] # (Auto) 0.4 K/uL (0.0-0.8) 02/27/18 07:06 Eos # (Auto) 0.1 K/uL (0.0-0.7) 02/27/18 07:06 Baso # (Auto) 0.1 K/uL (0.0-0.2) 02/27/18 07:06 PT 12.5 SECONDS (9.7-12.2) H 02/26/18 20:09 INR 1.1 02/26/18 20:09 APTT 35 SECONDS (21-34) H 02/26/18 20:09 Sodium 137 mmol/L (132-148) 02/27/18 07:06 Potassium 4.0 mmol/L (3.6-5.2) 02/27/18 07:06 Chloride 105 mmol/L (98-107) 02/27/18 07:06 Carbon Dioxide 26 mmol/L (22-30) 02/27/18 07:06 Anion Gap 10 (10-20) 02/27/18 07:06 BUN 17 mg/dL (7-17) 02/27/18 07:06 Creatinine 0.6 mg/dL (0.7-1.2) L 02/27/18 07:06 Est GFR ( Amer) > 60 02/27/18 07:06 Est GFR (Non-Af Amer) > 60 02/27/18 07:06 Random Glucose 80 mg/dL (65-105) 02/27/18 07:06 Calcium 8.4 mg/dl (8.6-10.4) L 02/27/18 07:06 Phosphorus 3.4 mg/dL (2.5-4.5) 02/27/18 07:06 Magnesium 1.9 mg/dL (1.6-2.3) 02/27/18 07:06 Total Bilirubin 0.5 mg/dL (0.2-1.3) 02/27/18 07:06 AST 19 U/L (14-36) 02/27/18 07:06 ALT 20 U/L (9-52) 02/27/18 07:06 Alkaline Phosphatase 70 U/L (38-126) 02/27/18 07:06 Total Protein 6.5 g/dL (6.3-8.3) 02/27/18 07:06 Albumin 3.7 g/dL (3.5-5.0) 02/27/18 07:06 Globulin 2.8 gm/dL (2.2-3.9) 02/27/18 07:06 Albumin/Globulin Ratio 1.3 (1.0-2.1) 02/27/18 07:06 Lipase 191 U/L (23-300) 02/26/18 13:49 Urine Color Flower (YELLOW) 02/26/18 13:24 Urine Clarity Hazy (Clear) 02/26/18 13:24 Urine pH 6.0 (5.0-8.0) 02/26/18 13:24 Ur Specific [place] 1.020 (1.003-1.030) 02/26/18 13:24 Urine Protein 2+ mg/dL (NEGATIVE) H 02/26/18 13:24 Urine Glucose (UA) Normal mg/dL (Normal) 02/26/18 13:24 Urine Ketones Negative mg/dL (NEGATIVE) 02/26/18 13:24 Urine Blood 3+ (NEGATIVE) H 02/26/18 13:24 Urine Nitrate Negative (NEGATIVE) 02/26/18 13:24 Urine Bilirubin Negative (NEGATIVE) 02/26/18 13:24 Urine Urobilinogen Normal mg/dL (0.2-1.0) 02/26/18 13:24 Ur Leukocyte Esterase Neg Neri/uL (Negative) 02/26/18 13:24 Urine WBC (Auto) 2 /hpf (0-5) 02/26/18 13:24 Urine RBC (Auto) 523 /hpf (0-3) H 02/26/18 13:24 Ur Squamous Epith Cells 21 /hpf (0-5) H 02/26/18 13:24 Urine HCG, Qual Negative (NEGATIVE) 02/27/18 07:25 Attending/Attestation - Attestation I have personally seen and examined this patient.: Yes I have fully participated in the care of the patient.: Yes I have reviewed all pertinent clinical information, including history, physical exam and plan: Yes Notes (Text): 02/28/18 09:10 Medical attending: Patient was seen and examined by me. Reviewed the above note by the resident and agree with the above Ty Terry
[2018-02-27 17:30] VITALS: BP 115/80; PULSE 69; TEMP 97.6
--- NOTE | 2018-02-28 17:21 | CARD ---
APPROVED REPORT Date of service: 02/26/2018 EKG Measurement Heart [id number] <Conclusion> Normal sinus rhythm Normal ECG
[2018-03-01] MEDS ORDERED: Influenza Vaccine 60 MCG/0.5 ML SYR (3 yr & up) IM ONE (10:00)
[2018-03-04 12:19] VITALS: O2SAT 99
--- NOTE | 2018-03-10 07:49 | HP ---
UROLOGY EMERGENCY ADMISSION HISTORY OF PRESENT ILLNESS: This is a very pleasant lady who has a history of stone disease. We were discussing options for her including stone comes out. She presents now with severe acute pain. We will bring her as an emergency or urgent admission. We are going to bring her to the OR as quickly as possible for stone treatment. PAST MEDICAL HISTORY: No changes previously. SOCIAL HISTORY: She works in a cleaning service. Otherwise unremarkable. No history of alcohol abuse. REVIEW OF SYSTEMS: As above and is noncontributory. No weight loss, chest pain or shortness of breath. Just has only severe renal colic. MEDICATIONS: See chart. ALLERGIES: SEE CHART. PHYSICAL EXAMINATION: GENERAL: She is a well-nourished female, no apparent distress. VITAL SIGNS: Within normal limits including the chart. LUNGS: Clear. CARDIOVASCULAR: S1 and S2. ABDOMEN: Overall soft, . PELVIS: Deferred until the time of visit, but as I mentioned now, no pelvic or rectal masses are noted. Minimal cystocele. DIAGNOSES: Urolithiasis, hematuria, severe renal colic, gross hematuria. ASSESSMENT AND PLAN: In summary, a very pleasant lady. Actually with her stone burden, my real recommendation is for cystoscopy, stent insertion followed by an extracorporeal shock wave laser lithotripsy or even YAG laser lithotripsy. We will discuss that but continue to bring her as an emergency or urgent admission. We are going to plan for antibiotic prophylaxis going to the operating room immediately for cystoscopy and no further plan to follow. Andi Rivera MD
--- NOTE | 2018-03-10 08:14 | OP ---
PROCEDURE DATE: 02/27/2018 PREOPERATIVE DIAGNOSES: Hematuria, hydronephrosis, severe renal colic, urolithiasis. POSTOPERATIVE DIAGNOSES: Hematuria, hydronephrosis, severe renal colic, urolithiasis. PROCEDURE: Exam under anesthesia, cystoscopy, left retrograde pyelogram, insertion of left double J stent. COMPLICATIONS: There were no complications. INDICATIONS: See history and physical for further details. This is a very pleasant lady with a stone who presents now for treatment. OPERATIVE FINDINGS: Patient has the stones with hydronephrosis and it is fairly large stone burden. At the termination of the procedure, the patient has a well placed double J stent. DESCRIPTION OF PROCEDURE: After obtaining informed consent, the patient was placed on the table, risk of infection, risk of bleeding, risk of stent discomfort were all discussed at length. The benefits of draining the kidney relieving the pressure, all of them discussed. Patient was given antibiotic prophylaxis. Time-out was called to confirm the patient positioning. Now, introduced the cystoscope via urethra. The bladder was inspected with the scope. No obvious bladder lesions. The ureteral orifice was identified and a retrograde pyelogram was performed. At this point, the stone identified, hydronephrosis identified. Wire was passed up through the kidney without any major difficulty and then we inserted a double J stent. The bladder was emptied and the cystoscope was removed. Patient tolerated the procedure without complications. The patient will subsequently be brought to the stone center for further treatment. Most likely we will perform a shockwave lithotripsy due to the stone and the burden and its location, etc. Andi Rivera MD
== END 2018-02-27 17:50 | disposition home or self-care (01) | DRG 324 ==
LOC: C.ER 11:57 → C.9E 16:22 → C.3T 16:49
PROVIDERS: ADMIT Hospitalist; ATTEND Hospitalist
PROC: BT1FZZZ Fluoroscopy of Left Kidney, Ureter and Bladder (ICD-10-PCS; 2018-02-27)
PROC: 0T778DZ Dilation of Left Ureter with Intraluminal Device, Via Natural or Artificial Opening Endoscopic (ICD-10-PCS; principal; 2018-02-27 12:00)
DX: N13.2 Hydronephrosis with renal and ureteral calculous obstruction (principal); R31.9 Hematuria, unspecified; F17.210 Nicotine dependence, cigarettes, uncomplicated; F31.9 Bipolar disorder, unspecified; Z87.442 Personal history of urinary calculi

== ENCOUNTER 2018-03-01 14:15 | Emergency (ER) | payer MEDICAID ==
[2018-03-01 14:22] VITALS: BMI 25.4
[2018-03-01 14:25] VITALS: RESP 20; O2SAT 100
[2018-03-01 15:14] LABS: BASO % 0.4 % (0.0-2.0); EOS # 0.1 K/uL (0.0-0.7); EOS % 0.8 % (0.0-4.0); HEMOGLOBIN 12.2 g/dL (11.0-16.0); LYMPH # 1.6 K/uL (1.0-4.3); LYMPH % 17.9 % (20.0-40.0); MEAN CELL VOLUME 86.1 fL (81.0-99.0); MEAN CORPUSCULAR HEMOGLOBIN 29.4 pg (27.0-31.0); MEAN CORPUSCULAR HGB CONC 34.1 g/dL (33.0-37.0); MEAN PLATELET VOLUME 8.7 fL (7.2-11.7); MONO # 0.5 K/uL (0.0-0.8); MONO % 5.9 % (0.0-10.0); NEUT # 6.8 K/uL (1.8-7.0); RBC 4.15 Mil/uL (3.80-5.20); RED CELL DISTRIBUTION WIDTH 13.1 % (11.5-14.5); WHITE BLOOD COUNT 9.1 K/uL (4.8-10.8)
[2018-03-01 15:23] LABS: SQUAMOUS EPITHIAL 9 /hpf (0-5); URINE BILIRUBIN NEGATIVE (NEGATIVE); URINE BLOOD 3+ (NEGATIVE); URINE CLARITY Hazy (Clear); URINE COLOR Red (YELLOW); URINE GLUCOSE (UA) 1+ mg/dL (Normal); URINE LEUKOCYTE ESTERASE TRACE Leu/uL (Negative); URINE PROTEIN 3+ mg/dL (NEGATIVE); URINE UROBILINOGEN NORMAL mg/dL (0.2-1.0)
[2018-03-01 15:37] LABS: ALB/GLOB RATIO 1.3 (1.0-2.1); ALBUMIN 4.1 g/dL (3.5-5.0); ALT/SGPT 19 U/L (9-52); AST/SGOT 22 U/L (14-36); BLOOD UREA NITROGEN 20 mg/dL (7-17); CALCIUM 9.1 mg/dl (8.6-10.4); GFR NON-AFRICAN AMERICAN > 60; LIPASE 133 U/L (23-300)
--- NOTE | 2018-03-01 17:04 | RAD ---
Abdomen single frontal view HISTORY: Left nephroureteral stent placement. COMPARISON: None available. Findings: Left nephroureteral stent in place. The stent appears partially uncoiled at the level of the left renal collecting system. Clinical correlation. Moderate fecal retention in the colon. Impression: Left nephroureteral stent in place. The stent appears partially uncoiled at the level of the left renal collecting system. Clinical correlation. Moderate fecal retention in the colon.
[2018-03-01 18:24] VITALS: BP 109/72; PULSE 89; TEMP 98.6
--- NOTE | 2018-03-01 18:58 | C.PDOC ---
History Of Present Illness 37 y/o female presents to the ED complaining of left flank pain, worsened today. Patient is s/p ureteral stent placement 3 days ago. She reports having continued pain in flank area despite pain management. Otherwise patient denies any nausea, vomiting, dysuria, fevers, or chills. (+) Hematuria. Time Seen by Provider: 03/01/18 14:28 Chief Complaint (Nursing): Back Pain History Per: Patient History/Exam Limitations: no limitations Onset/Duration Of Symptoms: Days (x3) Current Symptoms Are (Timing): Still Present Past Medical History Reviewed: Historical Data, Nursing Documentation, Vital Signs Vital Signs: Last Vital Signs Temp 98.6 F 03/01/18 18:23 Pulse 89 03/01/18 18:23 Resp 20 03/01/18 14:22 BP 109/72 03/01/18 18:23 Pulse Ox 100 03/01/18 18:23 - Medical History PMH: Bipolar Disorder, Kidney Stones (CURRENTLY PER PATIENT) Denies: Chronic Kidney Disease Family History: States: Unknown Family Hx - Social History Hx Tobacco Use: No Hx Alcohol Use: Yes Hx Substance Use: No - Immunization History Hx Tetanus Toxoid Vaccination: No Hx Influenza Vaccination: No Hx Pneumococcal Vaccination: No Review Of Systems Except As Marked, All Systems Reviewed And Found Negative. Constitutional: Negative for: Fever, Chills Cardiovascular: Negative for: Chest Pain Respiratory: Negative for: Shortness of Breath Gastrointestinal: Negative for: Nausea, Vomiting Genitourinary: Positive for: Hematuria. Negative for: Dysuria Musculoskeletal: Positive for: Back Pain (Left flank pain) Skin: Negative for: Rash Neurological: Negative for: Weakness, Numbness, Dizziness Physical Exam - Physical Exam Appears: Non-toxic, No Acute Distress Skin: Warm, Dry Head: Atraumatic, Normacephalic Eye(s): bilateral: Normal Inspection, PERRL, EOMI Oral Mucosa: Moist Neck: Normal ROM Chest: Symmetrical Cardiovascular: Rhythm Regular, No Murmur Respiratory: Normal Breath Sounds, No Accessory Muscle Use Gastrointestinal/Abdominal: Soft, No Tenderness, No Distention, No Guarding Back: CVA Tenderness (Left-sided), No Vertebral Tenderness Extremity: Bilateral: Atraumatic, Normal Color And Temperature Neurological/Psych: Oriented x3, Normal Speech ED Course And Treatment - Laboratory Results Result Diagrams: 03/01/18 15:00 03/01/18 15:00 O2 Sat by Pulse Oximetry: 100 (RA) Pulse Ox Interpretation: Normal - Other Rad Abd X-Ray X-Ray: Read By Radiologist Interpretation: Accession No. : [id number]. Patient Name / ID : HERMES PAK / [id number]. Exam Date : 03/01/2018 16:13:32 ( Approved ). Study Comment : Sex / Age : F / 37Y. Creator : Jaden Rodriguez MD. Dictator : Jaden Rodriguez MD. Guidance Adviser : Ruby [employer] Rails Software Developer : Jaden Rodriguez MD. Approver2 : Report Date : 03/01/2018 17:00:03. My Comment : . Abdomen single frontal view. HISTORY: Left nephroureteral stent placement. COMPARISON: None available. Findings: Left nephroureteral stent in place. The stent appears partially uncoiled at the level of the left renal collecting system. Clinical correlation. Moderate fecal retention in the colon. Impression: Left nephroureteral stent in place. The stent appears partially uncoiled at the level of the left renal collecting system. Clinical correlation. Moderate fecal retention in the colon. - CT Scan/US Renal US Other Rad Studies (CT/US): Read By Radiologist, Radiology Report Reviewed CT/US Interpretation: Name:HERMES WILSON Exam Date:Mar 01, 2018 4:47:36 PM EST. Modality Type:SD\US\AZ\SR. Description:US - ABDOMINAL COMPLETE. Gender:F Laterality:Bilateral. :78 Referring Physician:Slava Pimentel (). EXAM: US Abdomen, Right Upper Quadrant. CLINICAL HISTORY: S/p left ureter stent placement. TECHNIQUE: Right upper quadrant sonography performed with image documentation. COMPARISON: CT examination of the abdomen and pelvis dated 02/26/2018. FINDINGS: LIVER: The liver is heterogeneous in echogenicity.. There are multiple small cysts within the liver. The largest cyst measured proximally 1.7 x 1.9 x 1.8 cm. GALLBLADDER: The gallbladder appears within normal limits. No gallbladder wall thickening or pericholecystic fluid. COMMON BILE DUCT: No dilation. PANCREAS: The visualized pancreas appears within normal limits. The distal pancreas is obscured by bowel gas. RIGHT KIDNEY: The right kidney measures 11.6 cm in length. There are multiple cysts within the right kidney the largest measuring approximately 1.9 x 1.6 x 2 cm. Left kidney: Left kidney measures 13.2 cm in length and contains multiple cysts largest measuring 2 x 1.6 x 2 cm. There are multiple subcentimeter calculi within the left kidney including calculus at the upper portion measuring 6 mm, midportion 5 mm, lower portion 7 mm and 8 mm. There is mild fullness to the left renal collecting system. Left urinary stent is not seen on the ultrasound images. IMPRESSION: Liver is heterogeneous in echogenicity and contains multiple cysts. Gallbladder within normal limits. Bilateral small renal cysts and subcentimeter left renal calculi. Left urinary stent is not visualized on the current ultrasound images. Clinical correlation and follow-up by CT examination of the abdomen and pelvis recommended. Medical Decision Making Medical Decision Making: Impression: Flank Pain, s/p ureteral stent placement Initial Plan: --CMP --Lipase --CBC --Urinalysis --Urine culture --Abd x-ray (flat plate) --Toradol 30 mg IVP --Reeval Progress: Labs reviewed. Patient pending renal US. Spoke to Dr. Lola Rivera, reviewed x-ray and ultrasound, patient to follow up with him in 2 days. Recommended Motrin in conjunction with current pain meds. Disposition Counseled Patient/Family Regarding: Studies Performed, Diagnosis, Need For Followup - Disposition Referrals: Reese Rivera MD [Staff Provider] - Disposition: HOME/ ROUTINE Disposition Time: 18:00 Condition: GOOD Additional Instructions: STEVE MIRZA, thank you for letting us take care of you today. Your provider was Slava Pimentel DO and you were treated for ABD PAIN. The emergency medical care you received today was directed at your acute symptoms. If you were prescribed any medication, please fill it and take as directed. It may take several days for your symptoms to resolve. Return to the Emergency Department if your symptoms worsen, do not improve, or if you have any other problems. Please contact your doctor or call one of the physicians/clinics you have been referred to that are listed on the Patient Visit Information form that is included in your discharge packet. Bring any paperwork you were given at discharge with you along with any medications you are taking to your follow up visit. Our treatment cannot replace ongoing medical care by a primary care provider outside of the emergency department. Thank you for allowing the [facility] team to be part of your care today. You can take motrin (ibuprofen) 600mg every 6 hours as needed for additional pain management. Follow up with Dr. Rivera in 2 days as scheduled for re-evaluation and further management. Instructions: Ureteral Stent (DC) Forms: [employer] ([place]) - POA Present On Arrival: None - Clinical Impression Clinical Impression: Nephrolithiasis - Scribe Statement The provider has reviewed the documentation as recorded by the Jeni Yi Provider Attestation: All medical record entries made by the Jeni were at my direction and personally dictated by me. I have reviewed the chart and agree that the record accurately reflects my personal performance of the history, physical exam, m edical decision making, and the department course for this patient. I have also personally directed, reviewed, and agree with the discharge instructions and disposition.
--- NOTE | 2018-03-02 11:08 | US ---
Renal and limited abdominal ultrasound HISTORY: Left ureteral stent placement. COMPARISON: CT dated 02/26/2018 Technique: Real-time sonography was performed through the abdomen. Spleen was not imaged on this study. Findings: Liver: 13.3 centimeters in length. Heterogeneous echotexture. Increased echogenicity of the hepatic parenchymal cortex suggestive for fatty infiltration versus hepatic parenchymal disease. Hypoechoic cystic lesion seen within the right lobe of the liver measuring up to 1.6 x 1.6 x 1.2 centimeters. Additional hypoechoic cyst/cystic lesion in the right lobe of liver measuring 1.7 x 1.9 x 1.8 centimeters. Additional cysts seen on CT scan were not well documented on this study. Gallbladder: No calculi or sludge. Normal wall thickness of 2 millimeters. Negative sonographic Najera's sign. Common bile duct measures 6.5 millimeters, prominent. Clinical correlation. Limited visualization of the pancreas. Visualized aorta and IVC are grossly preserved. Right kidney: 11.6 x 5.2 x 5.6 centimeters. Increased echogenicity of the renal parenchymal cortex suggestive for medical renal disease. No hydronephrosis. Multiple echogenic foci seen within the right kidney suggestive for calculi measuring 9 millimeters in the upper pole, 4 millimeters in the midpole, and 7 millimeters in the lower pole. Multiple hypoechoic cysts in the kidney noted including a mid pole septated cyst measuring 1.9 x 1.6 x 2.0 centimeters, mid pole cyst measuring 1.1 x 0.9 x 1.2 centimeters, and lower pole cyst measuring 1.9 x 1.3 x 1.5 centimeters. Additional cystic lesion seen on CT scan were not well documented on this study. Left kidney: 13.2 x 5.7 x 5.6 centimeters. Increased echogenicity of the renal parenchymal cortex suggestive for medical renal disease. No hydronephrosis. Left ureteral stent was not well imaged on this study. Multiple echogenic foci in the kidneys suggestive for calculi measuring up to 6 millimeters in the upper pole, 5 millimeters in the mid pole, and 7 and 8 millimeters in the lower pole. Hypoechoic cyst in the left kidney measuring up to 2.3 x 1.6 x 2.0 centimeters in the upper pole and 1.1 x 0.8 x 1.2 centimeters in the lower pole. Additional cystic lesion seen on CT scan were not well documented on this study. Impression: Left ureteral stent was not well imaged on this study. Clinical correlation. Bilateral renal cysts and calculi as described above. Hepatic cysts. Increased echogenicity of the renal parenchymal cortices bilaterally suggestive for medical renal disease. Clinical correlation. Increased echogenicity of the hepatic parenchymal cortex suggestive for fatty infiltration versus hepatic parenchymal disease. Clinical correlation. Prominent common bile duct measuring 6.5 millimeters, prominent. Clinical correlation. Correlation with multiphasic contrast enhanced CT may be helpful to better evaluate the cyst/cystic lesions in the liver and kidneys which may be related to polycystic kidney disease. Clinical correlation.
== END 2018-03-01 19:20 | disposition home or self-care (01) ==
LOC: C.ER 14:15
DX: N20.0 Calculus of kidney (principal)
CPT/HCPCS: 74018; 76705; 76770; 80053; 81001; 83690; 85025; 87086; 96374; 99284; J1885